=== PATIENT | male | born 1980 | race Caucasian/White ===

== ENCOUNTER 2016-09-21 18:07 | Emergency (ER) | payer SELFPAY ==
[2016-09-21 18:16] LABS: INFLUENZA A NEG (NEG); INFLUENZA B NEG (NEG)
== END 2016-09-21 19:18 | disposition home or self-care (01) ==
LOC: SED 18:07
PROVIDERS: Emergency Medicine
DX: K52.9 Noninfective gastroenteritis and colitis, unspecified (principal); B34.9 Viral infection, unspecified; F17.200 Nicotine dependence, unspecified, uncomplicated
CPT/HCPCS: 36415; 87651; 87804; 96361; 96374; 96375; 99284; J1885; J2405